=== PATIENT | female | born 1995 | race Caucasian/White ===

== ENCOUNTER 2019-09-17 12:35 | Inpatient (IN) | payer OTHER ==
[2019-09-17] MEDS ORDERED: NS 0.9% 1000 ML** 1,000 ML IV ONE ×2 (14:13→16:30)
--- NOTE | 2019-09-17 14:36 | ED ---
Influenza-Like Illness - HPI Summary HPI Summary: Patient is a 24 y/o F presenting to the ED for a chief complaint of fever. Patient notes fatigue, generalized weakness, and a fever that began on . On 09/16/19, patient went to Urgent Care and had a fever of 104 F. She had a strep and influenza swab with negative findings and sent home with a prescription for 650 mg Tylenol. She last took Tylenol at 10:30 and 400 mg of Advil at 07:00 on 09/17/19. She also notes an enlarged thyroid, more on the left than right. Patient denies weight loss. She has a PMHx of thyroid mass. FMHx is significant for hypothyroidism, hyperthyroidism, ovarian cancer, breast cancer, and cardiac disease. Patient denies tobacco, drug, or alcohol use. Patient works at [employer], recent exposure to large farm animals. - History of Current Complaint Chief Complaint: EDFluSymptoms Time Seen by Provider: 09/17/19 14:11 Hx Obtained From: Patient Onset/Duration: Sudden Onset, Still Present Severity: Moderate Associated Signs & Symptoms: Fever - In vitals, 98.6 F - Allergy/Home Medications Allergies/Adverse Reactions: Allergies Allergy/AdvReac Type Severity Reaction Status Date / Time No Known Allergies Allergy Verified 09/17/19 13:13 PMH/Surg Hx/FS Hx/Imm Hx Previously Healthy: Yes Endocrine/Hematology History: Reports: Hx Thyroid Disease - Thyroid mass Denies: Hx Diabetes Cardiovascular History: Denies: Hx Hypercholesterolemia, Hx Hypertension Sensory History: Denies: Hx Legally Blind, Hx Deafness Opthamlomology History: Denies: Hx Legally Blind EENT History: Denies: Hx Deafness - Surgical History Surgical History: None Surgery Procedure, Year, and Place: None - Immunization History Date of Influenza Vaccine: 06/2019 Immunizations Up to Date: Yes Infectious Disease History: No Infectious Disease History: Denies: Traveled Outside the [place] in Last 30 Days - Family History Known Family History: Positive: Cardiac Disease, Other - Hypothyroidism, hyperthyroidism, ovarian cancer, breast cancer - Social History Occupation: Student Lives: Alone Alcohol Use: None Hx Substance Use: No Substance Use Type: Reports: None Hx Tobacco Use: No Smoking Status (MU): Never Smoked Tobacco Review of Systems Positive: Fever - In vitals, 98.6 F, Fatigue, Other - Negative weight loss Positive: Other - Positive enlarged thyroid, more on the left than right Positive: Weakness - Generalized All Other Systems Reviewed And Are Negative: Yes Physical Exam - Summary Physical Exam Summary: Constitutional: Well-developed, Well-nourished, Alert. (-) Distressed Skin: Warm, Dry HENT: Normocephalic; Atraumatic Eyes: Conjunctiva normal Neck: Musculoskeletal ROM normal neck. (-) JVD, (-) Stridor, (-) Nuchal rigidity. 5 cm 3 cm firm mass over the left neck/thyroid. Cardio: Rhythm regular, Heart sounds normal; Intact distal pulses; Radial pulses are 2+ and symmetric. (-) Murmur. Tachycardia. Pulmonary/Chest wall: Effort normal. (-) Respiratory distress, (-) Wheezes, (-) Rales Abd: Soft, (-) tenderness, (-) Distension, (-) Guarding, (-) Rebound Musculoskeletal: (-) Edema Lymph: (-) Cervical adenopathy. Neuro: Alert, Oriented x3 Psych: Mood and affect Normal Triage Information Reviewed: Yes Vital Signs On Initial Exam: Initial Vitals Temp Pulse Resp BP Pulse Ox 98.6 F 115 18 107/78 99 09/17/19 13:09 09/17/19 13:09 09/17/19 13:09 09/17/19 13:09 09/17/19 13:09 Vital Signs Reviewed: Yes Procedures - Sedation Patient Received Moderate/Deep Sedation with Procedure: No Diagnostics - Vital Signs Vital Signs Temp Pulse Resp BP Pulse Ox 09/17/19 13:09 98.6 F 115 18 107/78 99 - Laboratory Result Diagrams: 09/17/19 14:52 09/17/19 14:52 Lab Statement: Any lab studies that have been ordered have been reviewed, and results considered in the medical decision making process. - EKG 14:16 Cardiac Rate: NL - 66 BPM EKG Rhythm: Sinus Rhythm ST Segment: Normal Ectopy: None Summary of EKG Findings: An EKG at 14:16 reveals normal sinus rhythm 66 BPM, nml axis, nml intervals. No STEMI. No acute changes. Reviewed and interpreted by Dr. Ren. Flu Symptom Course/Dx - Course Course Of Treatment: 24 y/o F w hx of thyroid problems p/w fever, tachycardia. - concern for thyroid storm vs infectious process. Recent neg flu, strep, CXR. - check CBC, CMP, TSH/T4, CXR. - given IVF. 16:00 CBC w WBC 28, 33% bandemia. Check LA, BC x2, broad coverage abx w vanc zosyn for sepsis of unknown origin, admit to hospitalist. - Diagnoses Provider Diagnoses: Fever, Bandemia - Physician Notifications Discussed Care Of Patient With: Michael Lopez - At 16:08, Dr. Michael Lopez reviewed the patients case and will admit the [place] [facility] [place] a diagnosis of fever and bandemia. Time Discussed With Above Provider: 16:08 Instructed by Provider To: Admit As Inpatient Discharge ED - Sign-Out/Discharge Documenting (check all that apply): Patient Departure - Discharge Plan Condition: Stable Disposition: HOME Referrals: [facility] - MRVamsi [Primary Care Provider] - - Billing Disposition and Condition Condition: STABLE Disposition: Home - Attestation Statements Document Initiated by Yony: Yes Documenting Scribe: Lucy Carrion Provider For Whom Yony is Documenting (Include Credential): Patrizia Ren MD Scribe Attestation: Lucy Goetz, scribed for Patrizia Ren MD on 09/17/19 at 1718. Scribe Documentation Reviewed: Yes Provider Attestation: The documentation as recorded by the Lucy anthony accurately reflects the service I personally performed and the decisions made by Patrizia barbosa MD Status of Scribe Document: Viewed
[2019-09-17 15:09] LABS: Hematocrit 35 % (35-47); Hemoglobin 12.2 g/dL (12.0-16.0); Mean Corpuscular HGB Conc 35 g/dL (31-36); Mean Corpuscular Hemoglobin 31 pg (27-31); Mean Corpuscular Volume 88 fL (80-97); Mean Platelet Volume 7.9 fL (7.4-10.4); Platelet Count 209 10^3/uL (150-450); Red Blood Count 3.99 10^6 /uL (3.70-4.87); Red Cell Distribution Width 12 % (10-15); White Blood Count 28.8 10^3/uL (3.5-10.8)
[2019-09-17 15:31] LABS: ABS Lymphocytes 0.8 10^3/ul (1.0-4.8); ABS Monocytes 2.1 10^3/ul (0-0.8); ABS Neutrophils 25.9 10^3/ul (1.5-7.7); Lymphocyte % 2.8 %
[2019-09-17 15:32] LABS: HCG Pregnancy < 0.60 mIU/mL
[2019-09-17 15:35] LABS: ALT 15 U/L (7-52); AST 20 U/L (13-39); Albumin 3.4 g/dL (3.2-5.2); Albumin/Globulin Ratio 1.1 (1-3); Alkaline Phosphatase 41 U/L (34-104); Anion Gap 8 mmol/L (2-11); BUN/Creatinine Ratio 14.8 (8-20); Blood Urea Nitrogen 13 mg/dL (6-24); CO2 Carbon Dioxide 25 mmol/L (22-32); Calcium 8.4 mg/dL (8.6-10.3); Chloride 101 mmol/L (101-111); EGFR Non-African American 77.7 (>60); Globulin 3.1 g/dL (2-4); Glucose 108 mg/dL (70-100); Potassium 3.5 mmol/L (3.5-5.0); Sodium 134 mmol/L (135-145); Total Protein 6.5 g/dL (6.4-8.9)
[2019-09-17 15:47] LABS: TSH (Thyroid Stimulating Horm) 5.19 mcIU/mL (0.34-5.60)
[2019-09-17 15:49] LABS: Free T4 0.95 ng/dL (0.61-1.12)
[2019-09-17] MEDS ORDERED: Piperacillin/Tazobac ADVAN(*) 3.375 GM in NS 0.9% 100 ML* 100 ML IVPB ONE (16:10)
[2019-09-17] MEDS ORDERED: Vancomycin(*) 750 MG in NS 0.9% 250 ML* 250 ML IVPB ONE (16:30)
[2019-09-17] MEDS ORDERED: Vancomycin(*) 1,000 MG VIAL IVPB SCH (17:00)
[2019-09-17] MEDS: Acetaminophen TAB* 325 MG PO PRN (17:16)
[2019-09-17 17:48] LABS: Urine Appearance Clear; Urine Bilirubin Negative (Negative); Urine Blood 1+ (Negative); Urine Color Yellow; Urine Glucose Negative (Negative); Urine Ketones Trace (Negative); Urine Nitrite Negative (Negative); Urine Protein Negative (Negative); Urine Specific Gravity 1.006 (1.010-1.030); Urine Urobilinogen Negative (Negative)
[2019-09-17 17:50] LABS: Influenza A Molecular NEGATIVE (Negative); Influenza B Molecular NEGATIVE (Negative)
[2019-09-17 17:53] LABS: Urine Bacteria Absent (Absent); Urine Red Blood Cell Trace(0-2/hpf) (Absent); Urine Squamous Epithelial Cell Present (Absent); Urine White Blood Cell Trace(0-5/hpf) (Absent)
[2019-09-17] MEDS: Ibuprofen TAB* 800 MG PO PRN (18:18)
[2019-09-17] MEDS ORDERED: Al Hydrox/Mg Hydrox/Simet LIQ* 30 ML UDC PO PRN (18:23)
[2019-09-17] MEDS ORDERED: Senna TAB 8.6 mg* TAB PO PRN (18:23)
[2019-09-17 20:59] LABS: Ferritin 187.1 ng/mL (11-307)
[2019-09-17] MEDS: NS 0.9% 1000 ML** 1,000 ML IV ONE ×2 (21:30→21:46)
[2019-09-17] MEDS ORDERED: Calcium Gluconate INJ* 1 GM in NS 0.9% 50 ML* 50 ML IVPB ONE (22:30)
--- NOTE | 2019-09-17 23:45 | HP ---
CC: [facility] * HISTORY AND PHYSICAL: DATE OF ADMISSION: 09/17/19 PROVIDER: DEREK Odonnell PRIMARY CARE PROVIDER: [facility]. ATTENDING PHYSICIAN WHILE IN THE HOSPITAL: Dr. Michael Lopez * (dictated by DEREK Odonnell) CHIEF COMPLAINT: Fever, fatigue, and body aches. HISTORY OF PRESENT ILLNESS: Carole Graf is a 24-year-old female with a past medical history significant for nonfunctional benign thyroid mass, who presented to the emergency department due to fever, fatigue, and body aches. The patient was at [facility] yesterday and had a documented fever of 104 degrees Fahrenheit per the patient. She was tested for influenza and strep, and these tests were negative per the patient. There was a chest x-ray, which showed no evidence of pneumonia at the [facility] and she was discharged to home. She continues to feel worse today. She has tender swelling in her anterior neck as well as headache. The symptoms have been going on for 4 total days at this point, though she does note that for 24 hours, 9 days ago, she had fever and fatigue, which resolved on their own, but she has been feeling tired since then. She denies sore throat, nasal congestion, rhinorrhea, ear pain, abdominal pain, nausea, vomiting, diarrhea, dyspnea, chest pain, rash or joint pain. The last time she took Tylenol was approximately 10 a.m. this morning. She is feeling fevers and chills alternatively while she is in the emergency department. The patient denies photophobia. ED COURSE: The patient's vitals when she arrived to the emergency department were temperature of 98.6, though later was 103.5 degrees Fahrenheit, pulse rate 115 initially, respiratory rate 18, oxygen saturation 99% on room air, blood pressure 107/78. She was found to have a bandemia to 33 and the hospitalists were asked to evaluate the patient for admission. PAST MEDICAL HISTORY: Nonfunctional thyroid mass on the left side, which was biopsied a year ago and found to be benign. PAST SURGICAL HISTORY: 1. Thyroid biopsy. 2. Fibroadenoma of the right breast removed. 3. Deviated septum surgery x 2. HOME MEDICATIONS: 1. Tri-Sprintec p.o. daily. 2. Tylenol 650 p.o. q.6 hours p.r.n. fever/pain. ALLERGIES: No known drug allergies. FAMILY HISTORY: No family history of thyroid disease. 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 She is not . She has no children. She denies tobacco use and is never a smoker. She denies illicit drug use. She drinks less than 1 alcoholic beverage per month. 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 The patient's surrogate medical decision maker will be her mother, Martina Camarillo, her phone number is [phone]. REVIEW OF SYSTEMS: An 11-point review of systems was completed. All pertinent positives and negatives are listed above. The patient additionally endorses the headache and feels difficult to swallow today. All other systems are negative. PHYSICAL EXAMINATION GENERAL: Thin, young, white female, who is well developed, well nourished with rigors. HEENT: Head: Normocephalic/atraumatic. Eyes: PERRLA. Sclerae anicteric. NECK: Large mass, which did not appear fluctuant or erythematous in the left aspect of the neck near the thyroid, but does appear to minimally cross the midline. The mass is tender to palpation. Anterior cervical lymphadenopathy bilaterally. No nuchal rigidity. No tenderness to palpation of the neck and along the cervical spine. LUNGS: Clear to auscultation throughout CARDIO: Regular rhythm. Rate is tachycardic at approximately 110 beats per minute. No appreciable murmurs, rubs or gallops. ABDOMEN: Normoactive bowel sounds x4 quadrants. Abdomen is soft, nontender, nondistended. No hepatosplenomegaly. EXTREMITIES: No clubbing, cyanosis or edema. NEURO: The patient is alert and oriented x3. No focal deficits, able to move all extremities. SKIN: Warm, dry, and intact. No rashes noted including around hairline. DIAGNOSTIC STUDIES/LAB DATA: White blood cell count 28.8, hemoglobin 12.2, hematocrit 35, platelet count 209, absolute neutrophils 25.9, bands 33. Sodium 134, potassium 3.5, chloride 101, carbon dioxide 25, anion gap 8, BUN 13, creatinine 0.88, glucose 108. Calcium 8.4. Ionized calcium 1.03. LFTs unremarkable. Beta-hCG negative. Urinalysis unremarkable. Monospot negative. Influenza A and B negative. Chest x-ray: Left thyroid lobe goiter results in rightward deviation of the trachea. No evidence of pneumonia. No acute cardiopulmonary process evident. Soft tissue ultrasound of the neck, impression: Large left thyroid nodule. No abscess. EKG: Sinus tachycardia 129 beats per minute, normal axis, no ST changes or T- wave inversions. ASSESSMENT AND PLAN: Carole Graf is a 24-year-old white female with past medical history significant for benign thyroid mass, who presents to the emergency department with fever, body aches, and chills. The patient will be admitted OBV for: 1. Fever, sepsis of unknown origin. The patient meets sepsis criteria, however , the infectious source is unclear. She has a significant leukocytosis, fever, and tachycardia. She did not receive bolus rate of 2 L, but did finish 2 L of fluid and I will add another liter of normal saline as a bolus if she does continue to be tachycardic and minimally hypotensive, though her blood pressure is probably somewhat low due to her being healthy and athletic at baseline. She does not have elevated LFTs. She does not have any abdominal signs and an abdominal source of infection is unlikely at this time. There is no evidence of pneumonia on chest x-ray. I do believe her tachycardia to be due to an infection, though her signs and symptoms do not appear to be consistent with meningitis and therefore my suspicion for this is low, though it does remain in the differential. She does not have nuchal rigidity. She does have a headache, but it is not associated with photophobia and it does not appear severe. She most likely has a viral cause, however, suspicion for bacteria must remain high with the significant neutrophil count and bandemia. Her influenza is negative. Her Monospot is negative, but an EBV has been ordered. I did order a Lyme screen given her likely tick exposure given her interactions with animals and a tick panel which was sent out. I have ordered an BELLO and RF and emelia as well to evaluate inflammatory disease or rheumatological disease. Soft tissue abscess has been ruled out as well. We will continue to monitor her vitals closely and I will admit her to telemetry given her tachycardia, though this would likely be discontinued tomorrow. Unfortunately, there is no infectious disease coverage at this time and should possibly be investigated in the future if the patient does not improve. I believe this to be viral etiology which is why I am not providing antibiotic coverage at this time. Dr. Hever Encinas agrees with this. 2. Thyroid goiter. The patient is known to have a benign thyroid mass, which was biopsied last year. Her TSH and T4 are negative, though I will check a free T3 for a sake of precaution given it seems that the goiter is larger per the patient, though thyrotoxicosis is very low on my differential for cause of her fever and cause for presentation due to the fact that her TSH is now within normal limits. 3. FEN. The patient received 2 L of normal saline at this point. An additional liter of normal saline will be ordered as previously mentioned. Regular unrestricted diet has been ordered. Electrolytes are within normal limits. 4. Code status. The patient is full code. 5. DVT prophylaxis. The patient has a DVT risk score of 1 and I have ordered ambulation and SCDs. TIME SPENT: Approximately, 55 minutes was spent on this admission, approximately half of this time was at bedside evaluating the patient and discussing the plan of care. This case has been reviewed with my attending, Dr. Michael Lopez, he agrees with this plan of care. DEREK ODONNELL [id number]/[facility] #: [id number] CATHY
[2019-09-18] MEDS: Acetaminophen TAB* 325 MG PO PRN ×2 (03:06→16:46)
[2019-09-18] MEDS: Ibuprofen TAB* 800 MG PO PRN ×2 (08:06→21:00)
[2019-09-18] MEDS ORDERED: NS 0.9% 1000 ML** 1,000 ML IV SCH (08:30)
[2019-09-18] MEDS ORDERED: Piperacillin/Tazobac ADVAN(*) 3.375 GM in NS 0.9% 100 ML* 100 ML IVPB ONE (08:58)
[2019-09-18] MEDS ORDERED: Vancomycin per Pharmacy* NOTE FOLLOW UP SCH (09:00)
[2019-09-18] MEDS ORDERED: Zosyn per Pharmacy* NOTE FOLLOW UP SCH (09:00)
--- NOTE | 2019-09-18 09:09 | PN ---
Subjective Date of Service: 09/18/19 Interval History: Patient has increasing pain in anterior and posterior neck. She has difficulty swallowing, but took pills and liquid earlier this AM. She has fever, feels very hot. States known thyroid nodule is usually well-defined, and isolated to LT side, non-tender. Today she is concerned that bilateral anterior neck is swollen and spreading to the right. Patient states headache more severe this AM. 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 No travel out of country. Friends are sick , lives w/ housemates Past Medical History: Unchanged from Admission Objective Active Medications: Acetaminophen (Tylenol Tab*) 650 mg PO Q4H PRN PRN Reason: PAIN - MILD Last Admin: 09/18/19 03:06 Dose: 650 mg Al Hydrox/Mg Hydrox/Simethicone (Maalox Plus*) 30 ml PO Q6H PRN PRN Reason: INDIGESTION Sodium Chloride (Ns 0.9% 1000 Ml) 1,000 mls @ 125 mls/hr IV PER RATE [facility] Piperacillin Sod/Tazobactam (Sod 3.375 gm/ Sodium Chloride) 100 mls @ 200 mls/ hr IVPB ONCE ONE Stop: 09/18/19 09:27 Vancomycin HCl 1,000 mg/ (Sodium Chloride) 250 mls @ 166.667 mls/hr IVPB ONCE [facility]; Protocol Stop: 09/18/19 10:29 Ibuprofen (Motrin Tab*) 800 mg PO Q8H PRN PRN Reason: PAIN-MODERATE/TEMP >/= 100.4 Last Admin: 09/18/19 08:06 Dose: 800 mg Pharmacy Consult (Zosyn Per Pharmacy*) 1 note FOLLOW UP .ZOSYN PER PHARMACY [facility] Pharmacy Consult (Vancomycin Per Pharmacy*) 1 note FOLLOW UP .VANC PER PHARMACY [facility]; Protocol Senna (Senokot 8.6 Mg Tab*) 1 tab PO BID PRN PRN Reason: CONSTIPATION Vital Signs - 8 hr 09/18/19 09/18/19 04:08 09:01 Temperature 36.8 C 36.9 C Pulse Rate 115 Respiratory 18 Rate Blood Pressure 98/48 (mmHg) O2 Sat by Pulse 98 Oximetry Oxygen Devices in Use Now: None Appearance: alert, no distress Eyes: No Scleral Icterus Ears/Nose/Mouth/Throat: NL Teeth, Lips, Gums, Clear Oropharnyx Neck: - - Tender firm area LT anterior neck, diffuse swelling across LT and RT anterior neck, no erythema, positive Brudzinski's sign Respiratory: Clear to Auscultation, Clear to Percussion Cardiovascular: NL Sounds; No Murmurs; No JVD, RRR Abdominal: NL Sounds; No Tenderness; No Distention, No Hepatosplenomegaly Lymphatic: No Cervical Adenopathy Skin: No Rash or Ulcers, - - skin warm/diaphoretic Neurological: Alert and Oriented x 3 Lines/Tubes/Other Access: Clean, Dry and Intact Peripheral IV Nutrition: Taking PO's Result Diagrams: 09/17/19 14:52 09/17/19 14:52 Additional Lab and Data: Laboratory Tests 09/17/19 09/17/19 09/17/19 14:52 16:15 17:27 Lactic Acid Ionized Calcium 1.03 L Rheumatoid Factor Monoscreen Negative Influenza A (Rapid) Negative Influenza B (Rapid) Negative 09/17/19 09/17/19 19:10 19:10 Lactic Acid 1.8 Ionized Calcium Rheumatoid Factor 15 H Monoscreen Influenza A (Rapid) Influenza B (Rapid) Assess/Plan/Problems-Billing Assessment: 24 year old woman with benign thyroid nodule, here with fever, stiff neck, neck swelling, headache. - Patient Problems (1) Solitary mass of neck with fever Current Visit: Yes Status: Acute Priority: High Code(s): R22.1 - LOCALIZED SWELLING, MASS AND LUMP, NECK; R50.9 - FEVER, UNSPECIFIED SNOMED Code(s): 407835120 Comment: -Differential would include occult abscess, epiglotitis, infected branchial cleft cyst -Patient has sepsis, will restart vanco, zosyn for now. -CT neck w/ contrast ordered -Will consult with ENT. (2) Meningismus Current Visit: Yes Status: Acute Priority: High Code(s): R29.1 - MENINGISMUS SNOMED Code(s): 600681139 Comment: -Differential includes bacterial, viral meningitis. -Discussed case with Dr. Saxena, will pursue LP this AM. (3) Sepsis Current Visit: Yes Status: Acute Priority: High Comment: -Differential includes endocarditis, ricketsial illness due to large animal contact. -Will discuss HIV testing with patient. Status and Disposition: will need inpatient
[2019-09-18 09:36] LABS: ABS Lymphocytes 0.9 10^3/ul (1.0-4.8); ABS Monocytes 1.4 10^3/ul (0-0.8); ABS Neutrophils 16.1 10^3/ul (1.5-7.7); Hematocrit 30 % (35-47); Hemoglobin 10.1 g/dL (12.0-16.0); Lymphocyte % 5.1 %; Mean Corpuscular HGB Conc 34 g/dL (31-36); Mean Corpuscular Hemoglobin 30 pg (27-31); Mean Corpuscular Volume 89 fL (80-97); Mean Platelet Volume 8.1 fL (7.4-10.4); Platelet Count 161 10^3/uL (150-450); Red Blood Count 3.33 10^6 /uL (3.70-4.87); Red Cell Distribution Width 12 % (10-15); White Blood Count 18.4 10^3/uL (3.5-10.8)
[2019-09-18 09:46] LABS: Albumin 2.8 g/dL (3.2-5.2); Calcium 7.8 mg/dL (8.6-10.3); Potassium 2.8 mmol/L (3.5-5.0); Total Bilirubin 0.6 mg/dL (0.2-1.0)
[2019-09-18 09:52] LABS: Albumin/Globulin Ratio 1.2 (1-3); BUN/Creatinine Ratio 12.5 (8-20); EGFR African American 135.7 (>60); EGFR Non-African American 112.2 (>60); Globulin 2.3 g/dL (2-4); Total Protein 5.1 g/dL (6.4-8.9)
[2019-09-18] MEDS ORDERED: Vancomycin(*) 1,000 MG in NS 0.9% 250 ML* 250 ML IVPB ONE (10:00)
[2019-09-18] MEDS ORDERED: Iohexol 300* (CONTRAST) 10 ML SDV IV ONE (10:04)
[2019-09-18 11:06] LABS: HIV 4th Generation Nonreactive (Nonreactive)
[2019-09-18] MEDS: ZOSYN 3.375 GM Q8H per EXTENDED INFUSION IVPB SCH ×4 (13:20→21:06)
[2019-09-18] MEDS ORDERED: ZOSYN 3.375 GM Q8H per EXTENDED INFUSION IVPB SCH ×2 (14:30)
--- NOTE | 2019-09-18 15:20 | CONS ---
CONSULTATION REPORT: DATE OF CONSULT: 09/18/19 SERVICE: Consultation is for the hospitalist service. 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 Swelling in the left neck. Previous history of thyroid goiter. She denies any travel outside of the region. She denies any bites or scratches. She denies any otalgia. She denies any tonsillar symptoms. She denies any dental issues. She had a CT scan that showed a large parapharyngeal mass. This appeared to be anterior in the thyroid level 6 space. Mass measured 10 x 10 cm with a necrotic center. CLINICAL IMPRESSION: The patient with fever, night sweats, and a large neck mass. No specific etiology was identified. We are going to get a fine needle aspiration, and if this appears to be an inflammatory or infectious node, possible I and D or possible attempt at removal may be necessary. [id number]/[facility] #: [id number] CATHY
[2019-09-18] MEDS: NS 0.9% w/ 20 Meq KCL 1000 ML* 1,000 ML IV SCH (16:51)
[2019-09-18] MEDS: KCL 20 MEQ/100 ML IVPREMIX* 20 MEQ/100 ML BAG IV SCH (16:51)
[2019-09-18] MEDS: Vancomycin(*) 1,000 MG in NS 0.9% 250 ML* 250 ML IV SCH (21:06)
[2019-09-19] MEDS: KCL 20 MEQ/100 ML IVPREMIX* 20 MEQ/100 ML BAG IV SCH (04:40)
[2019-09-19] MEDS: Vancomycin(*) 1,000 MG in NS 0.9% 250 ML* 250 ML IV SCH ×4 (04:53→23:41)
[2019-09-19] MEDS: Acetaminophen TAB* 325 MG PO PRN ×2 (05:29→11:37)
[2019-09-19] MEDS: ZOSYN 3.375 GM Q8H per EXTENDED INFUSION IVPB SCH ×6 (07:24→21:03)
[2019-09-19 11:02] LABS: Vancomycin Trough 11.5 mcg/mL
[2019-09-19] MEDS: NS 0.9% w/ 20 Meq KCL 1000 ML* 1,000 ML IV SCH ×2 (11:30→23:41)
[2019-09-19] MEDS ORDERED: Vancomycin Trough Check NOTE FOLLOW UP ONE (11:30)
[2019-09-19 12:16] LABS: ABS Lymphocytes 1.4 10^3/ul (1.0-4.8); ABS Monocytes 1.2 10^3/ul (0-0.8); ABS Neutrophils 11.9 10^3/ul (1.5-7.7); Eosinophil % 0.2 %; Hematocrit 29 % (35-47); Hemoglobin 9.9 g/dL (12.0-16.0); Lymphocyte % 9.6 %; Mean Corpuscular HGB Conc 34 g/dL (31-36); Mean Corpuscular Hemoglobin 31 pg (27-31); Mean Corpuscular Volume 89 fL (80-97); Mean Platelet Volume 8.8 fL (7.4-10.4); Platelet Count 160 10^3/uL (150-450); Red Blood Count 3.23 10^6 /uL (3.70-4.87); Red Cell Distribution Width 13 % (10-15); White Blood Count 14.5 10^3/uL (3.5-10.8)
[2019-09-19 12:57] LABS: Albumin 2.6 g/dL (3.2-5.2); Calcium 7.4 mg/dL (8.6-10.3); Magnesium 1.7 mg/dL (1.9-2.7); Potassium 3.3 mmol/L (3.5-5.0); Total Bilirubin 0.4 mg/dL (0.2-1.0)
[2019-09-19 13:03] LABS: Albumin/Globulin Ratio 1.3 (1-3); BUN/Creatinine Ratio 10.2 (8-20); EGFR African American 149.1 (>60); EGFR Non-African American 123.2 (>60); Total Protein 4.6 g/dL (6.4-8.9)
[2019-09-19 13:24] LABS: EBV Capsid Ag IgG Ab Positive (Negative); EBV Capsid Ag IgM Ab Negative (Negative); Epstein-Barr Nuclear Antigen Positive (Negative)
[2019-09-19] MEDS ORDERED: Magnesium Sulfate 2 GM IV* 2 GM/50 ML BAG IVPB ONE (13:56)
[2019-09-19] MEDS: Dexamethasone IV* 4 MG/ML 1 ML (4 MG) IV SLOW PU SCH ×2 (14:05→21:03)
--- NOTE | 2019-09-19 14:11 | PN ---
Subjective Date of Service: 09/19/19 Interval History: Patient not feeling better. She is swallowing water, pills, but has not been able to eat much. She is asking why she had a fever of 104 with a hematoma. No major fevers overnight. Family History: Unchanged from Admission Social History: Unchanged from Admission Past Medical History: Unchanged from Admission Objective Active Medications: Acetaminophen (Tylenol Tab*) 650 mg PO Q4H PRN PRN Reason: PAIN - MILD Last Admin: 09/19/19 11:37 Dose: 650 mg Al Hydrox/Mg Hydrox/Simethicone (Maalox Plus*) 30 ml PO Q6H PRN PRN Reason: INDIGESTION Dexamethasone Sodium Phosphate (Decadron Iv*) 4 mg IV SLOW PU Q8HR ERROL Piperacillin Sod/Tazobactam (Sod 3.375 gm/ Sodium Chloride) 100 mls @ 25 mls/ hr IVPB Q8H [facility] Last Admin: 09/19/19 14:00 Dose: 25 mls/hr Potassium Chloride/Sodium Chloride (Ns 0.9% W/ 20 Meq Kcl 1000 Ml*) 1,000 mls @ 125 mls/hr IV PER RATE [facility] Last Admin: 09/19/19 11:30 Dose: 125 mls/hr Vancomycin HCl 1,000 mg/ (Sodium Chloride) 250 mls @ 166.667 mls/hr IV Q6H ERROL Magnesium Sulfate (Magnesium Sulfate 2 Gm Iv*) 2 gm in 50 mls @ 50 mls/hr IVPB ONCE ONE Stop: 09/19/19 14:55 Last Admin: 09/19/19 14:03 Dose: 50 mls/hr Ibuprofen (Motrin Tab*) 800 mg PO Q8H PRN PRN Reason: PAIN-MODERATE/TEMP >/= 100.4 Last Admin: 09/18/19 21:00 Dose: 800 mg Magnesium Oxide (Magox 400 Tab*) 400 mg PO BID ERROL Senna (Senokot 8.6 Mg Tab*) 1 tab PO BID PRN PRN Reason: CONSTIPATION Vital Signs - 8 hr 09/19/19 09/19/19 09/19/19 07:38 07:41 07:42 Temperature 37.4 C 37.6 C Pulse Rate 86 91 Respiratory 20 20 Rate Blood Pressure 88/47 (mmHg) O2 Sat by Pulse 97 Oximetry 09/19/19 11:00 Temperature 37.2 C Pulse Rate 101 Respiratory 20 Rate Blood Pressure 99/59 (mmHg) O2 Sat by Pulse 100 Oximetry Oxygen Devices in Use Now: None Appearance: pale, ill appearing, no resp distress Ears/Nose/Mouth/Throat: Clear Oropharnyx Neck: - - edema RT anterior neck, tender indurated mass LT anterior neck Respiratory: Symmetrical Chest Expansion and Respiratory Effort, Clear to Auscultation Cardiovascular: NL Sounds; No Murmurs; No JVD, RRR Abdominal: NL Sounds; No Tenderness; No Distention, No Hepatosplenomegaly Neurological: Alert and Oriented x 3 Lines/Tubes/Other Access: Clean, Dry and Intact Peripheral IV Nutrition: Taking PO's Result Diagrams: 09/19/19 10:16 09/19/19 10:18 Additional Lab and Data: Laboratory Tests 09/17/19 09/18/19 09/19/19 14:52 09:53 10:18 Glucose 148 H Magnesium 1.7 L Albumin 2.6 L EBV Capsid Ag IgG Ab Positive EBV Capsid Ag IgM Ab Negative EBV Nuclear Antigen Positive EBV Interpretation See comment HIV 1&2 Ab/P24 Ag 4thGn Nonreactive Microbiology and Other Data: Microbiology 09/18/19 13:45 Gram Stain - Final Body Fluid - Other Body Fluid Culture - Preliminary No Growth Day 1 Acid Fast Bacilli Smear - Final 09/17/19 16:13 Aerobic Blood Culture - Preliminary Blood Venous No Growth Day 1 Anaerobic Blood Culture - Preliminary No Growth Day 1 09/17/19 16:13 Aerobic Blood Culture - Preliminary Blood Venous No Growth Day 1 Anaerobic Blood Culture - Preliminary No Growth Day 1 09/17/19 17:25 Urine Culture - Final Urine No Growth (<1,000 CFU/mL) Assess/Plan/Problems-Billing Assessment: 24 year old woman with benign thyroid nodule, here with fever, neck pain, large mass in LT anterior neck - Patient Problems (1) Solitary mass of neck with fever Current Visit: Yes Status: Acute Priority: High Code(s): R22.1 - LOCALIZED SWELLING, MASS AND LUMP, NECK; R50.9 - FEVER, UNSPECIFIED SNOMED Code(s): 980036641 Comment: - Biopsy showed signs of hematoma - Differential would still include abscess, lymphoma, infected branchial cleft cyst - Patient has sepsis, will restart vanco, zosyn for now. - Discussed case with Dr. Quinones again. He will ask Dr. Dowell to see her tomorrow. He advised starting Decadron, and arranging US-guided aspiration and sampling of solid area tomorrow if not resolving (2) Sepsis Current Visit: Yes Status: Acute Priority: High Comment: -Patient appeared septic at admission -EBV shows old infection, HIV negative -Continue Zosyn/vanco, as aspirate and blood cultures still pending (3) Hypokalemia Current Visit: Yes Status: Acute Priority: Medium Code(s): E87.6 - HYPOKALEMIA SNOMED Code(s): 01515343 Comment: -Supplementing Mg and KCl by IV and PO (4) Malnutrition of moderate degree Current Visit: Yes Status: Acute Priority: Medium Code(s): E44.0 - MODERATE PROTEIN-CALORIE MALNUTRITION SNOMED Code(s): 030256709 Comment: -Discussed poor PO intake with Dr. Quinones -We are hoping that IV steroids will reduce inflammatory component of this process. Status and Disposition: inpatient
[2019-09-19 15:22] LABS: Urine Appearance Cloudy; Urine Bilirubin Negative (Negative); Urine Blood Negative (Negative); Urine Color Yellow; Urine Glucose 1+(50 mg/dL) (Negative); Urine Ketones Negative (Negative); Urine Nitrite Negative (Negative); Urine Protein 1+(30 mg/dL) (Negative); Urine Specific Gravity 1.015 (1.010-1.030); Urine Urobilinogen Positive (Negative)
[2019-09-19 15:26] LABS: Urine Bacteria 1+ (Absent); Urine Red Blood Cell Trace(0-2/hpf) (Absent); Urine Squamous Epithelial Cell Present (Absent); Urine White Blood Cell Trace(0-5/hpf) (Absent)
[2019-09-19] MEDS: Magnesium Oxide TAB* 400 MG PO SCH (21:03)
[2019-09-20] MEDS: Dexamethasone IV* 4 MG/ML 1 ML (4 MG) IV SLOW PU SCH ×2 (05:32→14:34)
[2019-09-20] MEDS: Vancomycin(*) 1,000 MG in NS 0.9% 250 ML* 250 ML IV SCH ×3 (05:33→17:28)
[2019-09-20] MEDS: ZOSYN 3.375 GM Q8H per EXTENDED INFUSION IVPB SCH ×8 (05:34→21:50)
[2019-09-20 06:03] LABS: ABS Monocytes 0.5 10^3/ul (0-0.8); Hematocrit 32 % (35-47); Hemoglobin 10.6 g/dL (12.0-16.0); Lymphocyte % 10.3 %; Mean Corpuscular HGB Conc 33 g/dL (31-36); Mean Corpuscular Hemoglobin 31 pg (27-31); Mean Corpuscular Volume 92 fL (80-97); Mean Platelet Volume 8.2 fL (7.4-10.4); Platelet Count 182 10^3/uL (150-450); Red Blood Count 3.49 10^6 /uL (3.70-4.87); Red Cell Distribution Width 13 % (10-15); White Blood Count 9.4 10^3/uL (3.5-10.8)
[2019-09-20 06:17] LABS: BUN/Creatinine Ratio 11.1 (8-20); EGFR African American 165.1 (>60); EGFR Non-African American 136.5 (>60); Potassium 3.9 mmol/L (3.5-5.0)
[2019-09-20] MEDS: Magnesium Oxide TAB* 400 MG PO SCH ×2 (08:56→21:43)
[2019-09-20] MEDS: NS 0.9% w/ 20 Meq KCL 1000 ML* 1,000 ML IV SCH (09:06)
--- NOTE | 2019-09-20 13:36 | CONS ---
CONSULTATION REPORT: DATE OF CONSULT: 09/20/19 REQUESTING PHYSICIAN: Dr. Umanzor. CONSULTING SERVICE: Infectious Disease. REASON FOR CONSULT: Fever, neck mass. IMPRESSION: 1. Fever and left thyroid mass. A CT that shows heterogeneously enhancing structure in the left tracheoesophageal groove with associated lymphadenopathy, stranding of the mediastinum. The fine needle biopsy showed hemorrhage. This could all be an inflammatory response to hemorrhage. Alternatively, it could be hemorrhage with secondary bacterial infection. If it is infected, then organisms of the upper airways and mouth as well as Staph aureus are the usual consideration for infection in that area. She is overall improving on corticosteroids and broad- spectrum antibiotics. 2. History of left thyroid mass, which was biopsied in the past and found to be benign. RECOMMENDATIONS: Continue Zosyn. We will stop vancomycin. She has agreed to another day of IV antibiotics and steroids and to follow her neck. If she continued to have significant improvement, she could transition to Augmentin 500 mg by mouth twice a day for another 2 weeks. Follow up with me. I think she should also follow up with ENT, potentially Endocrinology or Endocrine Surgery. HISTORY OF PRESENT ILLNESS: Fever that developed on Monday, which followed shortly thereafter by worsening swelling, redness and pain of a chronic left neck mass. It had previously been biopsied a couple of years ago and found to be a benign thyroid tumor, but this week became red, swollen, pain with swallowing and the pain extended into her chest. She came to the hospital and she was started on vancomycin and Zosyn. Her white count was 28,000. TSH was 5. Blood cultures were negative. Urine culture negative. A neck CT showed a mixed solid cystic heterogeneously enhancing structure in the left tracheoesophageal groove 6.2 cm. It displaced the trachea and esophagus to the right and displaced the left lobe of the thyroid. There was superior mediastinal, anterior visceral space lymphadenopathy; retropharyngeal edema; stranding involving the superior mediastinum, left carotid, and anterior subcutaneous tissues. She was seen by ENT. She was started on corticosteroids. Yesterday, she had significant improvement in the pain and swelling in the neck and chest. This continued to improve today. She had a fever of 39.9 on arrival, none since steroid initiation. Today, she has no fevers, chills, or sweats. Her appetite is slowly coming back. She has decreased pain in her neck. She has no pain elsewhere. The pain in her chest is resolving. She wants to go home today. She had a fine needle biopsy of the thyroid mass on 02/01 that showed benign thyroid nodule and subacute hemorrhage, abundant neutrophils. She has not had anything happen like this in the past. PAST MEDICAL HISTORY: Left neck mass. PAST SURGICAL HISTORY: Resection of fibroadenoma of the right breast. ALLERGIES: No known drug allergies. MEDICATIONS: 1. Tylenol. 2. Dexamethasone. 3. Ibuprofen as needed. 4. Magnesium oxide twice daily. 5. Zosyn 3.375 g IV every 8 hours. 6. Senna as needed. 7. Vancomycin 1g IV every 6 hours. 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 No tobacco use. No illicit drugs. FAMILY HISTORY: No thyroid disease. REVIEW OF SYSTEMS: All negative except as noted above to a 14-point review of systems. PHYSICAL EXAM: Vital Signs: Temperature 37, heart rate 80, respiratory rate 20 , blood pressure 95/60, oxygen saturation 99% on room air. In general, she is awake, not in distress, not diaphoretic. Neurologic: She is oriented x3. Follows all commands. HEENT: There is no conjunctival hemorrhage. Oropharynx without lesions. Neck: There is a left neck mass with mild warmth. No tenderness. Erythema extending about the clavicle with some warmth as well. No crepitus or tenderness through the chest. Heart is regular rate and rhythm without murmurs, rubs, or gallops. Lungs are clear to auscultation bilaterally. Abdomen: Soft, nontender, nondistended. There are bowel sounds present. Lymph Nodes: There is no cervical, supraclavicular, inguinal, axillary, or epitrochlear lymphadenopathy. Musculoskeletal: There is no spine tenderness to palpation or joint synovitis. LABORATORY DATA: White blood cell count 9, hemoglobin 10, platelets 182. Creatinine is 0.5. Please see impression and recommendations outlined above, which I have discussed with Dr. Gould. Thanks for asking me to see Kaylah Lesia in consultation. [id number]/[facility] #: [id number] MTDD
--- NOTE | 2019-09-20 14:28 | PN ---
Subjective Date of Service: 09/20/19 Interval History: Odynophagia, tenderness both decreased, can now eat and drink virtually normally. No bowel c/o. No more sweats or chills. No new c/o. Family History: Unchanged from Admission Social History: Unchanged from Admission Past Medical History: Unchanged from Admission Objective Active Medications: Acetaminophen (Tylenol Tab*) 650 mg PO Q4H PRN PRN Reason: PAIN - MILD Last Admin: 09/19/19 11:37 Dose: 650 mg Al Hydrox/Mg Hydrox/Simethicone (Maalox Plus*) 30 ml PO Q6H PRN PRN Reason: INDIGESTION Piperacillin Sod/Tazobactam (Sod 3.375 gm/ Sodium Chloride) 100 mls @ 25 mls/ hr IVPB Q8H [facility] Last Admin: 09/20/19 14:22 Dose: 25 mls/hr Potassium Chloride/Sodium Chloride (Ns 0.9% W/ 20 Meq Kcl 1000 Ml*) 1,000 mls @ 125 mls/hr IV PER RATE [facility] Last Admin: 09/20/19 09:06 Dose: 125 mls/hr Vancomycin HCl 1,000 mg/ (Sodium Chloride) 250 mls @ 166.667 mls/hr IV Q6H [facility] Last Admin: 09/20/19 12:06 Dose: 166.667 mls/hr Ibuprofen (Motrin Tab*) 800 mg PO Q8H PRN PRN Reason: PAIN-MODERATE/TEMP >/= 100.4 Last Admin: 09/18/19 21:00 Dose: 800 mg Magnesium Oxide (Magox 400 Tab*) 400 mg PO BID [facility] Last Admin: 09/20/19 08:56 Dose: 400 mg Pharmacy Consult (Zosyn Per Pharmacy*) 1 note FOLLOW UP .ZOSYN PER PHARMACY [facility] Pharmacy Consult (Vancomycin Per Pharmacy*) 1 note FOLLOW UP .VANC PER PHARMACY [facility]; Protocol Pharmacy Profile Note (Vancomycin Trough Check) 1 note FOLLOW UP 1100 ONE Stop: 09/21/19 11:01 Senna (Senokot 8.6 Mg Tab*) 1 tab PO BID PRN PRN Reason: CONSTIPATION Vital Signs - 8 hr 09/20/19 09/20/19 09/20/19 07:00 08:00 11:00 Temperature 98.7 F 98.7 F Pulse Rate 67 82 Respiratory 21 16 20 Rate Blood Pressure 113/70 95/60 (mmHg) O2 Sat by Pulse 99 99 Oximetry Oxygen Devices in Use Now: None Appearance: Alert, sitting up in bed. In good spirits. Looks comfortable. Eyes: No Scleral Icterus Neck: - - Diffuse L anterior neck swelling, mildly tender, not hot. Diffuse erythema. Extremities: No Edema, No Clubbing, Cyanosis, - Skin: No Rash or Ulcers, No Nodules or Sclerosis, - Neurological: Alert and Oriented x 3, NL Sensation - Nutrition: Malnutrition Diagnosis/Plan Malnutrition Assessment by Registered Dietitian: Malnutrition Assessment Clinical Characteristics Acute,Severe Malnutrition Assessment: Muscle Wasting - Moderate temporal wasting ( Criteria severe) Inadequate Oral Intake - Pt reports a poor appetite x1 wk; consumed 30-35% all meals yesterday - Anticipate meeting <50% nutrient needs >5 days (severe) Malnutrition Assessment: Nutritional Supplementals/Nourishments - Pt Interventions requesting and consuming Ensure Enlive (350kcal , 20g prot/serv); will monitor continued acceptance and schedule supplement as indicated Glycemic Control - Will continue to monitor BG/ FS in the setting of steroid med use Malnutrition Assessment: Goals 1) Adequate po intake to support lean body mass and hydration status 2) Improve fluid/electrolyte balance w/ adequate po intake and repletion PRN 3) Maintain glycemic control w/ adequate po intake w/o need for dietary restriction in the setting of steroid med use 4) Maintain bowel regularity w/ adequate po intake w/o development of diarrhea/constipation Result Diagrams: 09/20/19 05:34 09/20/19 05:34 Additional Lab and Data: Laboratory Tests 09/17/19 09/18/19 09/19/19 14:52 09:53 10:18 Glucose 148 H Magnesium 1.7 L Albumin 2.6 L EBV Capsid Ag IgG Ab Positive EBV Capsid Ag IgM Ab Negative EBV Nuclear Antigen Positive EBV Interpretation See comment HIV 1&2 Ab/P24 Ag 4thGn Nonreactive Microbiology and Other Data: Microbiology 09/18/19 13:45 Gram Stain - Final Body Fluid - Other Body Fluid Culture - Preliminary No Growth Day 1 Acid Fast Bacilli Smear - Final 09/17/19 16:13 Aerobic Blood Culture - Preliminary Blood Venous No Growth Day 1 Anaerobic Blood Culture - Preliminary No Growth Day 1 09/17/19 16:13 Aerobic Blood Culture - Preliminary Blood Venous No Growth Day 1 Anaerobic Blood Culture - Preliminary No Growth Day 1 09/17/19 17:25 Urine Culture - Final Urine No Growth (<1,000 CFU/mL) Assess/Plan/Problems-Billing Assessment: 24 year old woman with benign thyroid nodule, here with fever, neck pain, large mass in LT anterior neck - Patient Problems (1) Thyroid nodule Current Visit: Yes Status: Acute Code(s): E04.1 - NONTOXIC SINGLE THYROID NODULE SNOMED Code(s): 111281108 Comment: Present 2 yrs, benign bx in another facility. ? abcess/hemorrhage. Continue pip/armando, vanco, consider discharge on oral antibiotic in 1-[address] Abdi, will discuss with ENT surgeon as well before discharge. Status and Disposition: inpatient
[2019-09-20 16:58] LABS: Anaplasma phagocytophilum Negative (Negative); B. miyamotoi PCR, B Negative (Negative); Babesia divergens/MO-1 Negative (Negative); Babesia ducani Negative (Negative); Ehrlichia chaffeensis Negative (Negative); Ehrlichia ewingii/canis Negative (Negative); Ehrlichia muris eauclairensis Negative (Negative)
[2019-09-21] MEDS: Vancomycin(*) 1,000 MG in NS 0.9% 250 ML* 250 ML IV SCH ×2 (00:17→05:06)
[2019-09-21] MEDS: ZOSYN 3.375 GM Q8H per EXTENDED INFUSION IVPB SCH ×2 (05:04)
[2019-09-21] MEDS: Magnesium Oxide TAB* 400 MG PO SCH (09:17)
[2019-09-21] MEDS ORDERED: Vancomycin Trough Check NOTE FOLLOW UP ONE (11:00)
[2019-09-21] MEDS: Acetaminophen TAB* 325 MG PO PRN (11:20)
[2019-09-21 11:35] LABS: EGFR Non-African American 108.3 (>60)
[2019-09-21 11:55] LABS: Vancomycin Trough 20.1 mcg/mL
[2019-09-21 12:20] VITALS: BP 114/68
--- NOTE | 2019-09-21 12:31 | PN ---
Subjective Date of Service: 09/21/19 Family History: Unchanged from Admission Social History: Unchanged from Admission Past Medical History: Unchanged from Admission Objective Active Medications: Acetaminophen (Tylenol Tab*) 650 mg PO Q4H PRN PRN Reason: PAIN - MILD Last Admin: 09/21/19 11:20 Dose: 650 mg Al Hydrox/Mg Hydrox/Simethicone (Maalox Plus*) 30 ml PO Q6H PRN PRN Reason: INDIGESTION Amoxicillin/Clavulanate Potassium (Augmentin Tab*) 875 mg PO BID [facility] Ibuprofen (Motrin Tab*) 800 mg PO Q8H PRN PRN Reason: PAIN-MODERATE/TEMP >/= 100.4 Last Admin: 09/18/19 21:00 Dose: 800 mg Magnesium Oxide (Magox 400 Tab*) 400 mg PO BID [facility] Last Admin: 09/21/19 09:17 Dose: 400 mg Senna (Senokot 8.6 Mg Tab*) 1 tab PO BID PRN PRN Reason: CONSTIPATION Vital Signs - 8 hr 09/21/19 09/21/19 09/21/19 05:10 07:00 08:00 Temperature 98 F 98.1 F Pulse Rate 65 75 Respiratory 17 16 18 Rate Blood Pressure 112/69 110/67 (mmHg) O2 Sat by Pulse 99 97 Oximetry 09/21/19 11:00 Temperature 100.3 F Pulse Rate 91 Respiratory 20 Rate Blood Pressure 114/68 (mmHg) O2 Sat by Pulse 100 Oximetry Oxygen Devices in Use Now: None - Nutrition: Malnutrition Diagnosis/Plan Malnutrition Assessment by Registered Dietitian: Malnutrition Assessment Clinical Characteristics Acute,Severe Malnutrition Assessment: Muscle Wasting - Moderate temporal wasting ( Criteria severe) Inadequate Oral Intake - Pt reports a poor appetite x1 wk; consumed 30-35% all meals yesterday - Anticipate meeting <50% nutrient needs >5 days (severe) Malnutrition Assessment: Nutritional Supplementals/Nourishments - Pt Interventions requesting and consuming Ensure Enlive (350kcal , 20g prot/serv); will monitor continued acceptance and schedule supplement as indicated Glycemic Control - Will continue to monitor BG/ FS in the setting of steroid med use Malnutrition Assessment: Goals 1) Adequate po intake to support lean body mass and hydration status 2) Improve fluid/electrolyte balance w/ adequate po intake and repletion PRN 3) Maintain glycemic control w/ adequate po intake w/o need for dietary restriction in the setting of steroid med use 4) Maintain bowel regularity w/ adequate po intake w/o development of diarrhea/constipation Result Diagrams: 09/20/19 05:34 09/21/19 10:51 Additional Lab and Data: Laboratory Tests 09/17/19 09/18/19 09/19/19 14:52 09:53 10:18 Glucose 148 H Magnesium 1.7 L Albumin 2.6 L EBV Capsid Ag IgG Ab Positive EBV Capsid Ag IgM Ab Negative EBV Nuclear Antigen Positive EBV Interpretation See comment HIV 1&2 Ab/P24 Ag 4thGn Nonreactive Microbiology and Other Data: Microbiology 09/18/19 13:45 Gram Stain - Final Body Fluid - Other Body Fluid Culture - Preliminary No Growth Day 1 Acid Fast Bacilli Smear - Final 09/17/19 16:13 Aerobic Blood Culture - Preliminary Blood Venous No Growth Day 1 Anaerobic Blood Culture - Preliminary No Growth Day 1 09/17/19 16:13 Aerobic Blood Culture - Preliminary Blood Venous No Growth Day 1 Anaerobic Blood Culture - Preliminary No Growth Day 1 09/17/19 17:25 Urine Culture - Final Urine No Growth (<1,000 CFU/mL) Assess/Plan/Problems-Billing Assessment: 24 year old woman with benign thyroid nodule, here with fever, neck pain, large mass in LT anterior neck - Patient Problems (1) Thyroid nodule Current Visit: Yes Status: Acute Code(s): E04.1 - NONTOXIC SINGLE THYROID NODULE SNOMED Code(s): 693302183 Comment: Present 2 yrs, benign bx in another facility. ? abcess/hemorrhage. Continue pip/armando, vanco, consider discharge on oral antibiotic in 1-[address] Abdi, will discuss with ENT surgeon as well before discharge. Status and Disposition: inpatient
--- NOTE | 2019-09-21 13:05 | PN ---
Progress Note - Progress Note Date of Service: 09/21/19 Note: Time spent on discharge including exam of patient, discussion with patient, nurse, Dr. Dowell, review of EHR and preparation of discharge documents is 45 minutes.
--- NOTE | 2019-09-21 13:48 | DS ---
CC: Dr. Dowell * DISCHARGE SUMMARY: DATE OF ADMISSION: 09/18/19 DATE OF DISCHARGE: 09/21/19 HISTORY/HOSPITAL COURSE: This 24-year-old woman presented with fever, fatigue, and body aches, temperature was up to 104 degrees. She went to an urgent care center and was tested for influenza and strep, which were negative per the patient. She was discharged to home I believe without any new medications. She developed swelling into the anterior neck. She has a history of a thyroid nodule for 2 years, followed at another facility. This was biopsied and found to be benign at another facility. Initially, the temperature was 103.8, it rapidly came down. She was given intravenous antibiotics. The swelling and pain resolved. She was able to swallow normally without pain, although she still was fatigued, and her appetite was diminished at the time of discharge. The mass had shrunk significantly, although she felt it was still larger than before this episode. She had an ultrasound of the thyroid as well as a CT of the neck. She had an aspiration of the mass, blood was aspirated. The biopsy of the thyroid showed a benign thyroid nodule of the colloid/hyperplastic type, Heber class II, with extensive subacute hemorrhage, abundant neutrophils were present. The patient was seen in consultation by Dr. Abdi. He felt that the vancomycin could be stopped. Dr. Quinones and Dr. Dowell saw the patient during this hospital stay. They will follow up her closely with appointment in the office this coming week. She was discharged with a prescription for amoxicillin clavulanate 875 mg b.i.d. for 7 days. MEDICATIONS ON DISCHARGE: 1. Amoxicillin clavulanate as above. 2. Norgestimate/ethinyl estradiol daily. 3. Acetaminophen 650 mg every 6 hours. CONDITION ON DISCHARGE: Improved. DISPOSITION ON DISCHARGE: Discharged home. [id number]/[facility] #: [id number] [facility]ITALJose
[2019-09-21] MEDS ORDERED: Amoxicillin/Clavulanate TAB* 875 MG PO SCH (21:00)
== END 2019-09-21 14:00 | disposition home or self-care (01) | DRG 872 ==
LOC: ED 12:35 → MED 18:23 → OBSVTOIN 09-18 11:00
PROVIDERS: ADMIT Internal Medicine; ATTEND Internal Medicine
PROC: 0GBG3ZX Excision of Left Thyroid Gland Lobe, Percutaneous Approach, Diagnostic (ICD-10-PCS; principal; 2019-09-18)
DX: A41.9 Sepsis, unspecified organism (principal); E44.0 Moderate protein-calorie malnutrition; E07.89 Other specified disorders of thyroid; E04.1 Nontoxic single thyroid nodule; E87.6 Hypokalemia; Z28.21 Immunization not carried out because of patient refusal
CPT/HCPCS: 10021; 36415; 70491; 71046; 76882; 80048; 80053; 80202; 81003; 81015; 82330; 82565; 82728; 83605; 83735; 84439; 84443; 84479; 84481; 84520; 84702; 85025; 86038; 86308; 86431; 86618; 86664; 86665; 87040; 87070; 87086; 87102; 87116; 87205; 87206; 87389; 87798; 88172; 88173; 93005; 96365; 99284; A9270-GY; G0378; J0610; J1100; J2543; J3370; J3475; J3480; Q9967